=== PATIENT | male | born 1950 | race Hispanic/Latino ===

== ENCOUNTER 2024-01-03 22:11 | Inpatient (IN) | payer MEDICARE, OTHER, SELFPAY ==
[2024-01-03] VITALS (14 sets, daily range): BP systolic 140–187; BP diastolic 83–124; BMI 25.6; BMI 30.5
--- NOTE | 2024-01-03 17:06 | ED.PDOC.TRB ---
ED Provider Triage
-
Patient seen by provider in Triage?: Seen in Triage
Attestation: A medical screening examination has been initiated by a qualified medical provider. Based on the assessment performed at this time, it has been determined that an emergent medical condition may exist and the patient has been informed
that further medical evaluation and possible additional diagnostic testing may be needed.
HPI: 73yoM here with chest tightness throughout the day. BP high at home. Feels like something is wrong.
GENERAL: Alert , in no apparent distress
EYE: No visual abnormalities.
NECK: Trachea midline
ENT: No visible abnormalities.
LUNGS: No acute respiratory distress
NEUROLOGICAL: Alert and oriented
SKIN: Skin intact. No visible changes.
MUSCULOSKELETAL: Moving extremities normally
PSYCH: Normal and appropriate interaction.
This is a medical evaluation conducted in person to initiate diagnostic evaluation and provide initial therapeutics. Please see further documentation by the treating clinician.
Cardiac labs, EKG, and CXR ordered.
[2024-01-03 17:39] LABS: % Basophils 0.3 % (0-2); % Eosinophils 1.7 % (0-6); % Immature Granulocytes 0.2 % (0-0.5); % Lymphocytes 25.3 % (20.5-51.1); % Monocytes 5.3 % (1.7-9.3); % Neutrophils 67.2 % (42.2-75.2); Absolute Eosinophils 0.1 10^3/uL (0-0.7); Absolute Lymphocytes 1.7 10^3/uL (1.2-3.4); Absolute Monocytes 0.4 10^3/uL (0.1-0.6); Absolute Neutrophils 4.4 10^3/uL (1.4-6.5); Hematocrit 44.1 % (39.0-52.0); Hemoglobin 14.6 g/dL (13.0-18.0); Mean Corp Hgb Conc. 33.1 g/dL (33.0-37.0); Mean Corpuscular Hgb 29.4 pg (27.0-31.0); Mean Corpuscular Volume 88.9 fL (80.0-94.0); Mean Platelet Volume 11.5 fL (7.4-10.4); Nucleated Red Blood Cells % 0 % (-); Platelet Count 212 10^3/uL (130-400); Red Blood Cell Count 4.96 10^6/uL (4.70-6.10); Red Cell Dist. Width 12.7 % (11.5-14.5); White Blood Cell Count 6.6 10^3/uL (4.8-10.8)
[2024-01-03 17:54] LABS: ALT (SGPT) 30 U/L (0-50); AST (SGOT) 32 U/L (17-59); Albumin 4.2 g/dl (3.5-5.0); Alkaline Phosphatase 88 U/L (38-126); Blood Urea Nitrogen 16 mg/dl (9-20); Calcium 9.3 mg/dl (8.4-10.2); Carbon Dioxide 30 mmol/L (22-30); Chloride 99 mmol/L (98-107); Glucose 111 mg/dl (70-99); Potassium 4.1 mmol/L (3.5-5.1); Sodium 140 mmol/L (135-145); Total Bilirubin 0.9 mg/dl (0.2-1.3); eGFR > 60.00
[2024-01-03 18:04] LABS: Troponin I < 0.012 ng/ml
--- NOTE | 2024-01-03 20:47 | HPS.HSE ---
Family Physician
-
Family Physician: NOT KNOW UNKNOWN - PT DOES
Chief Complaint
-
Chest sensation with heart skipping a beat, hypertension at home
History of Present Illness
73-year-old male who reports this morning he did not feel right. He felt his heart skipping beats along with a sensation of lightheadedness and some tingling down his left arm. Along with a current headache. He reports he has had episodes of this
over the past 9 to 10 months but very infrequent and they did not persist. He also reports his blood pressure was elevated at home 180/103 at approximately 1 PM this afternoon. He denies fever, chills, sore throat, shortness of breath, cough,
abdominal pain, nausea, vomiting, diarrhea, urinary symptoms, new medications. In the ER he was noted to have an idioventricular rhythm on the monitor with symptoms of his heart skipping a beat he states. The case was discussed with Dr. Mitchell from
cardiology by ER physician who recommended switching carvedilol ER 80 mg daily to metoprolol tartrate 50 mg every 6 hours with repeat echo in a.m. he is from [place] and follows with [facility] cardiology. He had a stress test approximately 1 month
ago does not have current results but was not notified it was abnormal. He has past medical history of hypertension, hyperlipidemia, BPH
Medical History
Past Medical History
Past Medical History: Reports Other
Additional Past Medical History:
hypertension
hyperlipidemia
BPH
Past Surgical History: Reports Other
Additional Past Surgical History:
Lasix eye surgery
Social History
Tobacco: Non-smoker
Alcohol: None
Drug: None
Personal:
Living: With Family ( Chinyere)
Employment: Retired
Family History
Family History: Other (Reports mother at 93 father 85 he is unsure of any medical problems or how they )
Allergies / Home Medications
Allergies reflects when Allergies were last updated in [facility].
Home Medications with original date entered in [facility]
Allergy/Medication List:
Allergies
Allergy/AdvReac Type Severity Reaction Status Date / Time
Penicillins Allergy Hives Verified 01/03/24 17:00
Home Medications
aspirin 81 mg chewable tablet 81 mg PO BID 01/03/24
carvedilol phosphate 80 mg capsule,ext.[id number] multiphase 80 mg PO DAILY 01/03/24
cyanocobalamin (vitamin B-12) 1,000 mcg tablet 1,000 mcg PO DAILY 01/03/24
dutasteride 0.5 mg capsule 0.5 mg PO DAILY 01/03/24
fexofenadine-pseudoephedrine ER 180 mg-240 mg tablet,ext.release 24 hr (Michelle-D 24 Hour) 1 tab PO DAILYPRN PRN allergies 01/03/24
fluticasone propionate 50 mcg/actuation nasal spray,suspension 1 spray intranasal DAILYPRN PRN conjestion 01/03/24
hydrochlorothiazide 25 mg tablet 25 mg PO DAILY 01/03/24
lisinopril 20 mg tablet 20 mg PO BID 01/03/24
nitroglycerin 0.3 mg sublingual tablet 0.3 mg sublingual [id number] PRN chest pain 01/03/24
rosuvastatin 40 mg tablet 40 mg PO DAILY 01/03/24
tamsulosin 0.4 mg capsule 0.4 mg PO DAILY 01/03/24
therapeutic multivitamin 1 tab PO DAILY 01/03/24
Review of Systems
-
History Source: Patient and Family ( at bedside)
A 12 point ROS was completed and negative except as noted: Yes
Constitutional: Denies Fever, Fatigue or Chills
EENT: Denies Sore Throat or Runny Nose
Respiratory: Denies Cough or Trouble Breathing
Cardiac: Reports Palpitations; Denies Chest Pain, Diaphoresis or Syncope
Abdomen/GI: Denies Abdominal Pain, Nausea, Vomiting, Diarrhea, Constipated or Bloody Stools
: Denies Dysuria, Frequency, Flank Pain, Incontinence, Difficulty Voiding, Urgency or Bleeding
Musculoskeletal: Denies Joint Pain or Edema
Skin: Denies Itching or Rash
Neurological: Reports Dizzy, Headache and Other (Tingling down left arm earlier today); Denies Weakness or Numbness
Endocrine: Reports No Symptoms
Hematologic/Lymphatic: Reports No Symptoms
Psych: Reports Calm
Physical Exam
Vital Signs
Vital Signs
Temp Pulse Resp BP Pulse Ox
98.1 F 64 22 166/109 98
01/03/24 16:57 01/03/24 20:31 01/03/24 20:31 01/03/24 20:31 01/03/24 16:57
Physical Exam
General: Comfortable and Conversant; No Fever or Chills
HEENT: NormoCephalic, Anicteric, Moist mucous membranes, PERRLA, [place] Conjunctivae and No Ptosis
Respiratory: Clear; No Wheezes, Rales or Rhonchi
Cardiac: S1/S2 and Bradycardia (Sinus); No Murmur, Rub, Gallop, Peripheral Edema or JVD
Breast: Deferred by me
GI: Soft, Non Tender, Non Distended, Normal Bowel Sounds and No Hepatosplenomegaly
Rectal: Deferred by Provider
Genito-urinary: Deferred by me
Musculoskeletal: No Clubbing, No Cyanosis and No Edema
Skin: Warm and Dry; No Rash or Jaundice
Neuro: AO x 3, No Motor Deficits, Nonfocal/grossly intact, Cranial Nerves Intact and No Sensory Deficits; No Slurred Speech, Facial Droop, Tremors or Sedated
Psych: Calm
Laboratory Results
-
01/03/24 17:15
01/03/24 17:15
Laboratory Results
Total Bilirubin 0.9 mg/dl (0.2-1.3) 01/03/24 17:15
AST 32 U/L (17-59) 01/03/24 17:15
ALT 30 U/L (0-50) 01/03/24 17:15
Alkaline Phosphatase 88 U/L (38-126) 01/03/24 17:15
Troponin I < 0.012 ng/ml 01/03/24 17:15
Data Reviewed
-
Diagnostic Radiology: Report Reviewed by me
Lab Data: Labs Reviewed by me
Impression/Plan
-
Impression/plan:
Admit to telemetry
#Palpitations with idioventricular rhythm on monitor
-Idioventricular rhythm was captured on ER monitor at bedside.
-Consult CBC cardiology�Dr. Imtchell aware
-Cardiology recommends switching carvedilol ER 80 mg daily> metoprolol to tartrate 50 mg every 6 hours
-Patient had stress test 1 month ago unsure of results by cardiology [facility]
-2D echo in a.m.
Troponin<0.012, will follow
-Check mag
-Continue aspirin 81 mg
CXR: No acute pulmonary process. Marked elevation left hemidiaphragm limiting evaluation of the cardiac silhouette
EKG: Sinus bradycardia 59 bpm, QTc 45 MS
#Uncontrolled HTN/HTN�benign
166/109
-IV hydralazine 10 mg now then 10 mg every 6 hours as needed SBP> 160 dobson>100
-Continue lisinopril 20 mg twice daily, HCTZ 25 mg daily with hold parameters
#HLD
-Check lipid profile
-Continue rosuvastatin 40 mg daily
#BPH
-Continue tamsulosin 0.4 mg at bedtime
-Continue dutasteride 0.5 mg daily
#Seasonal allergies
Takes Michelle-D 1 tab daily as needed last dose unknown
DVT prophylaxis
Subcu Lovenox
Full code per patient with Chinyere at bedside
--- NOTE | 2024-01-03 21:06 | W.PN.UPDATE ---
Update Note
Progress Note Update
Patient seen in conjunction with JULIANN. I agree with the get history and findings on physical exam. Concur with assessment and plan unless today otherwise.
This is a 73-year-old was past medical history significant for hypertension, hyperlipidemia, BPH presenting to the Emergency Department with episodes of recurrent palpitations.
Patient visiting from after his back. Patient reported that today he noted that his blood pressure was elevated at home. Aside from that he had dizziness. No lightheadedness. No nausea or vomiting. Denies any shortness of breath. There has
been no recent falls. Came to the ED to be evaluated for the chest symptoms.
Patient reports that he had prior episodes but not persistent. Reports a possible episode of loss of consciousness in March of last year which was presumed to be possible TIA. The patient had a recent stress test with results pending.
He denies any changes in medications. He has been chronically on carvedilol 80 mg for years.
While in the ED he was hypertensive to 170s over 110, initial pulse was 64 oxygen saturation was 90% on room air. ECG showed sinus bradycardia with rate of 59 GA was 154, no acute ST or T wave changes.
A rhythm strip showed episodes of accelerated idioventricular rhythm at a rate of 81. These episodes were associated with his palpitations symptomatically.
His troponin was 0.012. His CBC was currently normal. Electrolytes were normal with specifically normal potassium.
Assessment and plan
Palpitations -palpitations correlate with episodes of accelerated idioventricular rhythm. No apparent heart block. [place] sinus rate in the 50s to 60 while idioventricular rhythm runs in the 80s to 90s. No known history of ischemia. Troponin
negative here. Reports recent stress in [place] with results pending.
- admit to telemetry
- trend troponins
- d/c carvedilol 80mg per cardiology, placed on metoprolol q 6 for now
- check mag level
- had recent stress test to eval ischemia with results pending, continue aspirin statin
- check echo for CHF
- cardiology consulted
HTN - Uncontrolled HTN with headache
- prn hydralazine for now
- continue lisinopril and hctz
BPH
- continue dutasteride and tamsulosin
DVT PPX - lovenox
Code Status - Full Code
[2024-01-03 21:24] LABS: Troponin I < 0.012 ng/ml
[2024-01-03] MEDS: TYLENOL 650 MG PO (21:30)
[2024-01-03 21:42] LABS: Magnesium 1.8 mg/dl (1.6-2.3)
[2024-01-03] MEDS: APRESOLINE 5 MG IV (21:49)
[2024-01-03] MEDS: FLOMAX 0.4 MG PO (23:41)
[2024-01-04] VITALS (7 sets, daily range): BP systolic 132–160; BP diastolic 78–95; PULSE 67; O2SAT 98
--- NOTE | 2024-01-04 01:02 | PTCARENOTE ---
Received patient from ER. stable vitals. c/o Palpitations/SOB/ slight dizzy with venti rhythm ( on tele happened twice ). No other complaints otherwise. SR in 60s-70s on tele. POC reviewed with tele.
[2024-01-04 02:13] LABS: Troponin I < 0.012 ng/ml
--- NOTE | 2024-01-04 02:37 | ED.GENMED ---
History of Present Illness
General
Chief Complaint: Cardiac Symptoms
Source: patient and spouse
Exam Limitations: none
Time Seen by Provider: 01/03/24 20:02
Nursing documentation reviewed up to this point in time: agreed with
History of Present Illness
History of Present Illness:
73-year-old male with a past medical history of hypertension, hyperlipidemia who presents to the emergency room with his for evaluation of chest discomfort. Patient reports onset of symptoms earlier today and they have been intermittent. He
says that they usually last for anywhere from 10 seconds to about a minute. No clear triggering factors noted. He reports that he 'weird' feeling in the left side of his chest and some palpitations. He denies any shortness of breath. Denies
feeling dizzy or passing out. He denies any recent illness�no cough, fevers, chills. Has not had any GI issues. He denies any known cardiac history but says that he has seen a trampoline team coach recently�he says that he had a TIA last March and was
referred to cardiology for evaluation after this and he says he had a recent echocardiogram and stress test but has not heard anything about the results. Patient lives in [place] and is visiting family in the area right now, his primary
trampoline team coach is in [place]. He does note that because of his symptoms today he has been monitoring his blood pressure and it has been running higher than usual despite compliance with his medications.
Review of Systems
Review of Systems
All Other Systems: ROS reviewed and negative except as documented in HPI and ROS
Constitutional: Denies fever or chills
Respiratory: Denies cough or trouble breathing
Cardiac: Reports chest pain and palpitations; Denies diaphoresis or syncope
ABD/GI: Denies abdominal pain, nausea or vomiting
Musculoskeletal: Denies edema
Neurological: Denies dizzy or headache
Phy Exam
Physical Exam
Physical Exam:
General: Awake, alert, oriented x3; no acute distress
Head: Normocephalic, atraumatic
Eyes: Conjunctiva normal, EOMI
Throat: Airway intact, handling secretions
Neck: Trachea midline, supple without meningismus
Lungs: Clear to auscultation bilaterally, no wheezing, rales, rhonchi
Heart: Regular rate and rhythm, no murmurs, gallops, or rubs
Abd: Soft, non distended, nontender
Neuro: Cranial nerves grossly intact, speech fluid
Skin: no rash
Extremities: No edema in extremities, equal pulses in all extremities
Scores
Heart Failure Risk
Heart Failure Risk Score: Not Applicable
Heart Score for Chest Pain Patients
STEMI patient?: No
History: Slightly or Non-Suspicious
ECG: Normal
Age: >/= 65 years
Risk Factors: >/= 3 Risk Factors or History of CAD
Troponin: </= Normal Limit
Heart Score for Chest Pain Patients: 4
Heart Score Risk: 20.3% MACE over next 6 weeks
Withdrawal Assessment of Alcohol
Withdrawal Assessment Completed?: Not applicable
Course
Orders/Labs/Results
Orders:
Orders
01/03/24 Dinner
Cholesterol Lowering
At Your Request: Limited Participation
Does patient need a safe tray?: No
Cholesterol Lowering: Sodium, 2 Gram
Regular
01/03/24 17:00
Electrocardiogram (*1) Urgent
Reason for Study: Hypertension, Benign
01/03/24 17:01
EKG- Treatment ONCE
01/03/24 17:09
CR Chest - 2 Views Urgent
Comment:
Reason For Exam: Chest tightness
01/03/24 17:15
Complete Blood Count/With Diff Urgent
Comprehensive Metabolic Panel Urgent
Magnesium Urgent
Troponin I Urgent
01/03/24 19:32
ECG [Electrocardiogram (*1)] Urgent
Reason for Study: Palpitations
01/03/24 20:36
CARDIOLOGY CONSULT Urgent
Consulting Provider: Eleuterio Mitchell
Was physician already notified: Yes
01/03/24 20:47
Troponin I Urgent
01/03/24 21:05
Acetaminophen [Tylenol] 650 mg PO NOW STA
Acetaminophen [Tylenol] 650 mg PO Q6HPRN PRN
HydrALAZINE [Apresoline] 10 mg IV NOW STA
HydrALAZINE [Apresoline] 10 mg IV Q6HPRN PRN
01/03/24 21:11
Add On- LAB Stat
Tests Added?: magnesium level
01/03/24 21:16
Admit/Transfer Patient As Directed
Co-Sign Provider:
Level of Care: Inpatient admission
Assign to:: Telemetry
Physician / Group: kenia nava
Diagnosis: palpitation w/ idoventric rhythm, uncontroll htn
Reason for Telemetry: Arrhythmia
Date to Stop Telemetry: 01/06/24
Time to Stop Telemetry: 11:00
Reason for Hospitalization: palpitation w/ idoventric rhythm, uncontroll htn
Expected length of stay greater than two midnights?: Yes
ELOS- Estimated Length of Stay in days: 3
I certify the patient meets the requirements for IP care: Yes
Code Status As Directed
Resuscitation Status: Full Code
01/03/24 21:19
PRN Pain Medication Management As Directed
May give lesser potent ordered pain med per pt: Yes
preference::
Protocol:: Medication orders for pain may be administered in a
manner that supports deferring to patient preference
when the pt is:
- Requesting an ordered lesser potent pain medication.
Least to most potent pain medications are defined
as: acetaminophen < NSAID < tramadol < opioids
(morphine, oxycodone, hydromorphone).
- Requesting a lesser dose of the same medication IF
ORDERED.
- Requesting a less intrusive route of administration
if both routes are prescribed by the provider (PO <
IV).
01/03/24 21:39
HydrALAZINE [Apresoline] 5 mg IV NOW STA
HydrALAZINE [Apresoline] 5 mg IV Q6HPRN PRN
01/03/24 22:00
Flush (0.9% Sodium Chloride) [Flush (Nss)] See Dose Instructions IV PER PROTOCOL
01/03/24 22:42
Tamsulosin [Flomax] 0.4 mg PO HS
01/03/24 22:42
Activity As Directed
Activity Level: As Tolerated
Intake/ Output As Directed
Frequency: Per unit guidelines
Vital Signs As Directed
Frequency: Per unit guidelines
Pt Eval And Treat Routine
Activity Level: As Tolerated
DX Deep Vein Thrombosis Video Routine
01/04/24 01:33
Troponin I Urgent
01/04/24 06:00
Echo 2D MMode Color/Doppler IN AM
Reason for Study: idoventricular rhythm/cp
Basic Metabolic Panel IN AM
Cardiovascular Evaluation IN AM
Complete Blood Count/With Diff IN AM
Metoprolol [Lopressor] 50 mg PO Q6
01/04/24 08:00
Aspirin Chewable [Low Strength Aspirin] 81 mg PO DAILY
Cyanocobalamin [Vitamin B-12] 1,000 mcg PO DAILY
Finasteride [Proscar] 5 mg PO DAILY
Hydrochlorothiazide [Oretic] 25 mg PO DAILY
Lisinopril [Zestril] 20 mg PO BID
Multivitamin [Theragran] 1 tablet PO DAILY
Rosuvastatin Calcium [Crestor] 40 mg PO DAILY
01/04/24 18:00
Enoxaparin Sodium [Lovenox] 40 mg SC QPM
01/06/24 11:00
DC Protocol for Telemetry ONCE
Abnormal Lab Results
01/03/24
17:15
MPV 11.5 H fL
(7.4-10.4)
Glucose 111 H mg/dl
(70-99)
01/03/24 17:15
01/03/24 17:15
Vital Signs
Initial and Last Documented VS:
Initial Vital Signs
Temp Pulse Resp BP Pulse Ox
36.7 C 66 16 187/107 98
01/03/24 16:57 01/03/24 16:57 01/03/24 16:57 01/03/24 16:57 01/03/24 16:57
Last Documented Vital Signs
Temp Pulse Resp BP Pulse Ox
37.0 C 68 22 150/88 98
01/03/24 22:54 01/03/24 22:54 01/03/24 22:54 01/03/24 22:54 01/03/24 22:54
MDM/Problems Addressed
Differential Diagnosis Includes:
Angina/ACS, arrhythmia, GERD, costochondritis; pneumothorax, pneumonia, PE all considered much less likely clinically
MDM/Problems Addressed:
73-year-old male presents for evaluation of intermittent episodes of chest discomfort throughout the day. Hypertensive otherwise normal vitals. EKG shows sinus rhythm with no STEMI. Will check labs including a CBC and a CMP, troponin, chest
x-ray. Monitor closely reassess after the above.
I was notified by the patient's nurse that he had an episode of chest discomfort as described above and on child monitor went into a wide-complex rhythm�strips were printed out and scanned into the medical record. Unfortunately unable to catch
a twelve-lead EKG at the time as episode ended rather quickly. Review of rhythm strip appears to show wide-complex tachycardia rate in the low 100s�could be accelerated junctional or idioventricular rhythm/slow V. tach. Will discuss with
cardiology.
Labs reviewed: CBC and CMP no clinically significant abnormalities. Troponin undetectable x 1 repeats pending. Chest x-ray no acute disease. Case discussed with cardiology�recommended changing patient from carvedilol extended release 80 mg daily
to metoprolol tartrate 50 mg every 6 hours for now, will admit to the hospital service and continue to monitor. Case discussed with hospitalist for admission.
Chronic conditions affecting care:
Hypertension, hyperlipidemia
Acute Exacerbation and/or Progression of Chronic Illness:
Acutely hypertensive
Acute Exacerbation and/or Progression of Chronic Illness: HTN
*Radiology
Radiology exam reviewed: preliminary read by ED provider and radiology read reviewed
*Pulse Oximetry
Patient hypoxic: no
*EKG
Interpreted by ED Provider?: Yes
Heart Rate: 63
Rate: normal
Rhythm: sinus
[place]: normal axis
Interval: normal interval
QRS Pattern: normal QRS
Ischemia: no ischemia
*Critical Care Note
Total Time (30-74mins, 75-104mins- exclusive of procedures): Not Applicable
Data Reviewed
Source: patient and spouse
Patient Management
Discussion with other providers: Hospitalist (Discussed with hospitalist) and [employer]ar[employer] (Discussed with cardiology)
Escalation/DeEscalation of care consider admission/obs:
Admission indicated
ED Attending Note
-
Portions of this chart may have been created with voice recognition software.� Occasional wrong word or��sound alike� substitutions may have occurred due to the inherent limitations of voice recognition software.
Discharge Plan
Departure
Patient Disposition: Admit
Date of Disposition: 01/03/24
Time of Disposition: 20:38
Admit to doctor: Joe
Presentation/result/management discussed w/ accepting MD/DO: Hospitalist
Discharge Problem:
Chest discomfort, Idioventricular rhythm
Interventions
Interventions:
*Risk Screen - Suicide Last Done: 01/03/24 16:57
*Neglect/Abuse Screening Last Done: 01/03/24 16:57
*Nursing Disposition Last Done: 01/03/24 23:01
ED- Cardiac Assessment Last Done: 01/03/24 19:42
ED- Neurological Assessment Last Done: 01/03/24 19:42
ED- Pulmonary Assessment Last Done: 01/03/24 19:42
Discharge Date and Time
Discharge Date/Time: 01/03/24 22:40
--- NOTE | 2024-01-04 07:52 | CON.CAR ---
Addendum entered and electronically signed by Irlanda Obrien MD 01/04/24 11:17:
I saw and examined the patient.
The PROCESS IMPROVEMENT MANAGER's note was reviewed and I agree with the note.
Comment: 73 yo M with pmh of (known to [facility] cardiology from [place]), with hypertension, dyslipidemia, and BPH who presented with sudden onset palpitations and LH that was severe, and made him worry he would pass out. He is having ongoing
intermittent symptoms. Otherwise, he is active without issue. On exam RRR no m/r/g, lungs CTA, no le edema. His ECG shows Sinus with inferior infarct. While I was examining him, he had symptoms. Telemetry showed accelerated idioventricular
rhythm. Overall, this seems to be the source of his symptoms. Will check an echocardiogram to on sure no underlying structural heart disease. I discussed with Dr. Garza who will review his telemetry strips. Unfortunately there is not a great
easy fix to this. We may need to trial multiple beta-blockers, but if echo is normal and he is otherwise stable this could be done as an outpatient. Currently we have transitioned his Coreg to metoprolol, would recommend transitioning to succinate
for discharge.His hypertension was elevated on admission but this is stabilized. We are transitioning Coreg to metoprolol succinate, this may have a less effective antihypertensive effect. However we will titrate medications as needed. He will
continue on his rosuvastatin at current dosing for his hyperlipidemia. Will follow. Recommendations discussed with Dr. Murguia after evaluation.
Original Note:
Consultation
Consultation Request
Date/Time Consultation Requested: 01/03/2024 20:30
Date/Time Consultation Performed: 01/04/2024 07:50
Requesting Provider: Dr. Pollack
Performing Provider: JULINAN Malik for Dr. Obrien
Reason for Consultation: Chest pain
Medical History
-
Chief Complaint: Chest tightness, heart skipping beats, elevated BP
History of Present Illness:
Dameon Tellez is a 73-year-old male (known to [facility] cardiology from [place]), with hypertension, dyslipidemia, and BPH who presented to the emergency department with a chief complaint of lightheadedness He also endorsed his heart skipping beats
at home. He checked his BP. His systolic blood pressure was also 170 mmHg. He took an extra Lisinopril and felt a little bit better. He went to his daughters house. His lightheadedness kept returning. He had continued palpitations. He felt a little
tightness in his chest prior to arrival to the ER. It did not radiate. No associated symptoms of nausea and diaphoresis. He had an exercise nuclear stress test one month ago that was converted to Lexiscan. He has an appointment at the end of next
month with his mine deputy to discuss the results. He also had an echocardiogram at that time. He also was not yet given the results.
Past Medical History
Past Medical History: HTN, Hypercholesterolemia and Other (BPH)
Social History
Tobacco: Non-Smoker
Alcohol: None
Drug: None
Personal:
Living: With Family
Employment: Retired ([employer])
Family History
Family History: Reviewed & Not Pertinent (Denies early CAD and SCD.)
Allergies / Home Medications
Allergy/AdvReac Type Severity Reaction Status Date / Time
Penicillins Allergy Hives Verified 01/03/24 17:00
�Medication �Instructions �Recorded �Confirmed �Type
aspirin 81 mg chewable tablet 81 mg PO DAILY 01/03/24 01/03/24 History
aspirin 81 mg tablet 81 mg PO HS 01/03/24 01/03/24 History
carvedilol phosphate 80 mg 80 mg PO DAILY 01/03/24 01/03/24 History
capsule,ext.[id number] multiphase
cyanocobalamin (vitamin B-12) 1,000 mcg PO DAILY 01/03/24 01/03/24 History
1,000 mcg tablet
dutasteride 0.5 mg capsule 0.5 mg PO DAILY 01/03/24 01/03/24 History
fexofenadine-pseudoephedrine ER 1 tab PO DAILYPRN PRN allergies 01/03/24 01/03/24 History
180 mg-240 mg tablet,ext.release
24 hr (Michelle-D 24 Hour)
fluticasone propionate 50 1 spray intranasal DAILYPRN PRN 01/03/24 01/03/24 History
mcg/actuation nasal conjestion
spray,suspension
hydrochlorothiazide 25 mg tablet 25 mg PO DAILY 01/03/24 01/03/24 History
lisinopril 20 mg tablet 20 mg PO BID 01/03/24 01/03/24 History
nitroglycerin 0.3 mg sublingual 0.3 mg sublingual [id number] PRN 01/03/24 01/03/24 History
tablet chest pain
rosuvastatin 40 mg tablet 40 mg PO DAILY 01/03/24 01/03/24 History
tamsulosin 0.4 mg capsule 0.4 mg PO HS 01/03/24 01/03/24 History
therapeutic multivitamin 1 tab PO DAILY 01/03/24 01/03/24 History
Review of Systems
-
History Source: Patient
All other systems: Negative unless noted
Constitutional: No Symptoms
EENT: No Symptoms
Respiratory: No Symptoms
Cardiac: No Symptoms
Abdomen/GI: No Symptoms
: No Symptoms
Musculoskeletal: No Symptoms
Skin: No Symptoms
Neurological: Other (Lightheadedness)
Endocrine: No Symptoms
Hematologic/Lymphatic: No Symptoms
Physical Exam
Vital Signs
Temp Pulse Resp BP Pulse Ox
97.5 F 56 16 147/89 98
01/04/24 03:57 01/04/24 03:57 01/04/24 03:57 01/04/24 03:57 01/04/24 03:57
Lab Results
Troponin I < 0.012 ng/ml 01/04/24 01:33
Physical Exam
General: Well Developed, Well Nourished, No Apparent Distress and Comfortable
HEENT: Normocephalic, Anicteric and Moist Mucous Membranes
Respiratory: Clear and Non Labored Respirations
Cardiac: S1/S2 and Regular Rhythm; Negative Peripheral Edema
Breast: Deferred by me
GI: Soft, Non Tender, Non Distended and Normal Bowel Sounds
Rectal: Deferred by Provider
Genito-urinary: No Costovertebral Tender
Musculoskeletal: No Clubbing, No Cyanosis and No Edema
Skin: Warm and Dry
Neuro: AO x 3
Hematologic/Lymphatic: No Lymphadenopathy
Psych: Calm
Impression / Plan
-
Lightheadedness, in the setting of accelerated idioventricular rhythm
-Correlates with telemetry
-Coreg CR stopped and metoprolol tartrate started
-Follow telemetry
Chest tightness
-He had a Lexiscan nuclear stress test last month, requested
-Troponin < 0.012 x 3
-EKG without acute ischemia
Hypertensive urgency
-BP improved
-Received one dose of Hydralazine last night in the ER
Palpitations
-PACs on telemetry, would not advance beta janelle given idioventricular rhythm
Dyslipidemia, on rosuvastatin 40 mg, fasting lipid panel pending
Data Reviewed
-
EKG: Report Reviewed by me
Labs: Labs Reviewed by me
Old Records: Requested
[2024-01-04 08:14] LABS: % Basophils 0.2 % (0-2); % Eosinophils 3.2 % (0-6); % Immature Granulocytes 0.3 % (0-0.5); % Lymphocytes 27.2 % (20.5-51.1); % Monocytes 7.3 % (1.7-9.3); % Neutrophils 61.8 % (42.2-75.2); Absolute Eosinophils 0.2 10^3/uL (0-0.7); Absolute Lymphocytes 1.6 10^3/uL (1.2-3.4); Absolute Monocytes 0.4 10^3/uL (0.1-0.6); Absolute Neutrophils 3.7 10^3/uL (1.4-6.5); Hematocrit 41.7 % (39.0-52.0); Mean Corp Hgb Conc. 33.6 g/dL (33.0-37.0); Mean Corpuscular Hgb 29.3 pg (27.0-31.0); Mean Corpuscular Volume 87.2 fL (80.0-94.0); Mean Platelet Volume 11.7 fL (7.4-10.4); Nucleated Red Blood Cells % 0 % (-); Platelet Count 210 10^3/uL (130-400); Red Blood Cell Count 4.78 10^6/uL (4.70-6.10); Red Cell Dist. Width 12.9 % (11.5-14.5)
[2024-01-04 08:47] LABS: Blood Urea Nitrogen 17 mg/dl (9-20); Calcium 9.3 mg/dl (8.4-10.2); Carbon Dioxide 30 mmol/L (22-30); Chloride 101 mmol/L (98-107); Estimated Creatinine Clearance 94 ml/min; Glucose 120 mg/dl (70-99); HDL Cholesterol 63 mg/dl; LDL Cholesterol, Calculated 81 mg/dl; Potassium 3.8 mmol/L (3.5-5.1); Sodium 141 mmol/L (135-145); Total Cholesterol 159 mg/dl (50-199); Triglyceride 79 mg/dl (10-149); Very Low Density Lipoprotein 15 mg/dl (0-30); eGFR > 60.00
[2024-01-04] MEDS: ZESTRIL 20 MG PO ×2 (09:21→19:41)
[2024-01-04] MEDS: LOW STRENGTH ASPIRIN 81 MG PO (09:21)
[2024-01-04] MEDS: THERAGRAN 1 TABLET PO (09:21)
[2024-01-04] MEDS: CRESTOR 40 MG PO (09:21)
[2024-01-04] MEDS: ORETIC 25 MG PO (09:21)
[2024-01-04] MEDS: VITAMIN B-12 1000 MCG PO (09:21)
[2024-01-04] MEDS: PROSCAR 5 MG PO (09:21)
[2024-01-04 09:59] LABS: Glycohemoglobin (HgbA1c) 6.1 % (4.0-5.6)
--- NOTE | 2024-01-04 10:34 | W.PN.HOSP.TC ---
Today's Communication/Plan
-
see bold
Assessment / Plan
Assessment / Plan
Gen: NAD, AAOx3.
Eyes: EOMI, PERRLA, no scleral icterus.
Neck: supple.
CV: RRR, +S1/S2, no m/r/g.
Resp: CTAB, no rales, wheezes, or rhonchi.
Abd: +BS, soft, NT, ND
Skin: No rashes.
Neuro: CN 2-12 intact, non-focal.
Psych: Normal mood and affect.
Palpitations and lightheadedness:
-palpitations correlate with episodes of accelerated idioventricular rhythm. No apparent heart block. [place] sinus rate in the 50s to 60 while idioventricular rhythm runs in the 80s to 90s. No known history of ischemia. -Reports recent stress in
[place] with results pending
-case discussed with cardiology
-Coreg stopped, started Lopressor
-EP to eval
-trops NEG
-Mg 1.8, will give 1g IV Mg
-check echo
Other problemsL
Essential HTN: cont BB/ACEi/HCTZ
BPH: cont dutasteride/tamsulosin
Obesity due to excess calories: Encourage weight loss, affects all aspects of care
Pt's family updated extensively at bedside.
FULL/Lovenox
Total time spent on today's encounter was 50 minutes which included time spent in counseling the patient/family regarding diagnosis and treatment plan as listed above, goals of care, and symptom management. Case was discussed with nursing staff,
specialists, and care coordinators/case management. All labs and imaging personally reviewed by me. Remainder the time spent in detailed review of previous records, lab data, imaging, and other medical provider documentation.
Anticipated Discharge: Within 24 hours
Subjective/Interval History
-
Date of Service: January 04, 2024
Currently denies CP/SOB. Had palpitations earlier.
Objective Data
-
Labs:
Laboratory Results
01/04/24
07:43
WBC 6.0
Hgb 14.0
Hct 41.7
Plt Count 210
Sodium 141
Potassium 3.8
Chloride 101
Carbon Dioxide 30
BUN 17
Creatinine 0.8
Glucose 120 H
Calcium 9.3
Vital Signs:
Vital Signs
Temp Pulse Resp BP Pulse Ox
98 F 64 20 143/81 97
01/04/24 08:00 01/04/24 09:21 01/04/24 08:00 01/04/24 09:21 01/04/24 08:00
I&O
01/03/24 01/04/24 01/05/24
06:59 06:59 06:59
Intake Total 480 / 480
Balance 480 / 480
[2024-01-04] MEDS: MAGNESIUM SULFATE 100 IV (12:29)
[2024-01-04] MEDS: LOPRESSOR 50 MG PO ×2 (12:31→18:18)
--- NOTE | 2024-01-04 13:29 | CON.EPS ---
Consultation
-
Date/Time Consultation Requested: 01/04/24
Date/Time Consultation Performed: 01/04/24
Reason for Consultation: highly sympotmatic AIVR
Medical History
-
Chief Complaint: Palpitations and pre-syncope
History of Present Illness:
73-year-old gentleman with a history of hypertension, hyperlipidemia who was previously followed at [facility] at [place] and has recently moved to [place] and is here seeking further care. Patient was admitted with presyncope and palpitations.
Patient reported having palpitations. He has resistant hypertension and was previously being treated with carvedilol 80 mg once a day, hydrochlorothiazide 25, lisinopril 20 mg twice a day. With his recurrent palpitations arrhythmias, he was
admitted and has Coreg was switched to metoprolol 50 mg every 6h. He continued to have episodes of palpitations while in the hospital.
Telemetry was checked and was noted to have frequent episodes of PVCs and AIVR. Patient's symptom of presyncope and dizziness along with palpitations were reproducible with the onset of AIVR. Patient feels dizzy and about to fall down in the
presence Dr. Obrien with the onset of AIVR.
Past Medical History
Past Medical History: Arrhythmias (Frequent PVCs), HTN and Hypercholesterolemia
Past Electrophysiology History: PVC
Past EP Interventions: None
Social History
Tobacco: Non-Smoker
Alcohol: None
Drug: None
Personal:
Living: With Family
Family History
Family History: Reviewed & Not Pertinent
Allergies / Home Medications
Allergy/AdvReac Type Severity Reaction Status Date / Time
Penicillins Allergy Hives Verified 01/03/24 17:00
�Medication �Instructions �Recorded �Confirmed �Type
aspirin 81 mg chewable tablet 81 mg PO DAILY Blood Clot 01/03/24 01/03/24 History
Prevention/Tx
aspirin 81 mg tablet 81 mg PO HS Blood Clot 01/03/24 01/03/24 History
Prevention/Tx
carvedilol phosphate 80 mg 80 mg PO DAILY Blood Pressure 01/03/24 01/03/24 History
capsule,ext.[id number] multiphase
cyanocobalamin (vitamin B-12) 1,000 mcg PO DAILY Supplement 01/03/24 01/03/24 History
1,000 mcg tablet
dutasteride 0.5 mg capsule 0.5 mg PO DAILY Urinary Issue 01/03/24 01/03/24 History
fexofenadine-pseudoephedrine ER 1 tab PO DAILYPRN PRN allergies 01/03/24 01/03/24 History
180 mg-240 mg tablet,ext.release
24 hr (Michelle-D 24 Hour)
fluticasone propionate 50 1 spray intranasal DAILYPRN PRN 01/03/24 01/03/24 History
mcg/actuation nasal conjestion
spray,suspension
hydrochlorothiazide 25 mg tablet 25 mg PO DAILY Fluid 01/03/24 01/03/24 History
Retention/Swelling
lisinopril 20 mg tablet 20 mg PO BID Blood Pressure 01/03/24 01/03/24 History
nitroglycerin 0.3 mg sublingual 0.3 mg sublingual [id number] PRN 01/03/24 01/03/24 History
tablet chest pain
rosuvastatin 40 mg tablet 40 mg PO DAILY High Cholesterol 01/03/24 01/03/24 History
tamsulosin 0.4 mg capsule 0.4 mg PO HS Urinary Issue 01/03/24 01/03/24 History
therapeutic multivitamin 1 tab PO DAILY Supplement 01/03/24 01/03/24 History
Review of Systems
-
All other systems: Negative unless noted
Physical Exam
Vital Signs
Temp Pulse Resp BP Pulse Ox
98.4 F 64 18 154/95 98
01/04/24 12:12 01/04/24 12:31 01/04/24 12:12 01/04/24 12:31 01/04/24 12:12
Diagnostic Results
01/04/24 07:43
01/04/24 07:43
Troponin I < 0.012 ng/ml 01/04/24 01:33
Date of Last Echo: 01/04/2024
LV Ejection Fraction: 60%, moderate to severe MR
Physical Exam
General: Well Developed and Well Nourished
HEENT: Normocephalic, Anicteric and Moist Mucous Membranes
Respiratory: Clear and Non Labored Respirations
Cardiac: S1/S2 and Regular Rhythm
GI: Soft, Non Tender and Normal Bowel Sounds
Musculoskeletal: No Clubbing, No Cyanosis and No Edema
Neuro: Awake, Alert, Oriented and AO x 3
Impression / Plan
-
AIVR/ventricular arrhythmia/PVCs
-Patient has normal sinus rhythm but has slightly faster AIVR
-AIVR is highly symptomatic and symptoms of presyncope and dizziness is reproducible with the onset of AIVR
-Multiple episodes of AIVR and PVCs noted on telemetry
-PVC has same morphology as AIVR.
-EKG done on 01/03/2024 at 10:06 PM is showing AIVR at 88 bpm likely coming from anterolateral pap muscle
-Would recommend following
-Ischemic workup including cardiac catheterization to rule out any significant coronary artery disease
-Cardiac MRI to rule out any significant ventricular fibrosis.
-We discussed in detail with the possibility of ablation of the AIVR/PVC focus. Patient will see outpatient for ablation consult.
-Slow AIVR does not recommend ICD implantation just yet. However, if patient is bradycardic and atrial pacing is needed to suppress the PVCs and needs high dose beta-blockers, device can be implanted. Given the ventricular arrhythmia, if device
is needed, he should get dual-chamber ICD.
-Discontinue hydrochlorothiazide, uptitrate to Toprol 100 mg twice a day
-If there is no evidence of ischemia, flecainide could also be tried.
Moderate to severe mitral regurgitation
-Patient has otherwise normal structural heart disease on the echo but is noted to have moderate to severe MR
-Patient's AIVR and PVCs are coming from PAP muscle
-Mitral regurgitation could be related to AIVR as well
-Ischemic workup and ablation of the ventricular focus
Data Reviewed
-
EKG: Tracing Personally Visualized and interpreted
Radiology: Report Reviewed by me
Medical Tests (Nuc Med, Echo etc): Report Reviewed by me
Labs: Labs Reviewed by me
Old Records: Reviewed
--- NOTE | 2024-01-04 16:12 | CM ---
CM met with Dameon at bedside to complete IA. Advance Directive provided.
Dameon lives with in [address] with 1st floor setup. 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 No DME or history of SNF/VN.
PCP: Pt does not know
Pharmacy: Patient does not know
Plan: Discharge to home with no anticipated needs.
[2024-01-04] MEDS: LOVENOX 40 MG SC (18:18)
[2024-01-04] MEDS: FLOMAX 0.4 MG PO (22:57)
--- NOTE | 2024-01-04 23:30 | PTCARENOTE ---
Patient's HR -49-51, JULIANN Ingram made aware. will hold midnight dose as per advise.
[2024-01-05] VITALS (12 sets, daily range): BP systolic 114–149; BP diastolic 67–92
[2024-01-05] MEDS: LOPRESSOR PO ×2 (00:52→05:40)
--- NOTE | 2024-01-05 08:20 | W.PN.HOSP.TC ---
Today's Communication/Plan
-
see bold
Assessment / Plan
Assessment / Plan
Gen: NAD, AAOx3.
Eyes: EOMI, PERRLA, no scleral icterus.
Neck: supple.
CV: remains RRR, +S1/S2, no m/r/g.
Resp: remains CTAB, no rales, wheezes, or rhonchi.
Abd: +BS, soft, NT, ND
Skin: No rashes.
Neuro: remains CN 2-12 intact, non-focal.
Psych: Normal mood and affect.
Echo: Normal biventricular size and systolic function without regional wall motion abnormality. Stage II diastolic dysfunction suggestive of abnormal relaxation and increased filling pressures. Moderate to severe mitral regurgitation, may be
underestimated due to acoustic shadowing. No prior study available for comparison.
Palpitations and lightheadedness:
-palpitations correlate with episodes of accelerated idioventricular rhythm. No apparent heart block. [place] sinus rate in the 50s to 60 while idioventricular rhythm runs in the 80s to 90s. No known history of ischemia.
-Reports recent stress in [place] with results pending
-case discussed with cardiology
-echo above
-Coreg stopped, Lopressor started
-cardiac cath today
-will need cardiac MRI prior to ablation
-trops NEG
Other problems:
Prediabetes: a1c 6.1%
Essential HTN: cont BB/ACEi/HCTZ
BPH: cont dutasteride/tamsulosin
Obesity due to excess calories: Encourage weight loss, affects all aspects of care
FULL/Lovenox
Anticipated Discharge: Within 24 hours
Subjective/Interval History
-
Date of Service: January 05, 2024
No new complaints.
Objective Data
-
Vital Signs:
Vital Signs
Temp Pulse Resp BP Pulse Ox
98.2 F 56 18 126/81 96
01/05/24 03:03 01/05/24 05:40 01/05/24 03:03 01/05/24 03:03 01/05/24 03:03
I&O
01/04/24 01/05/24 01/06/24
06:59 06:59 06:59
Intake Total 480 / 480 0 / 0
Balance 480 / 480 0 / 0
[2024-01-05] MEDS: LOW STRENGTH ASPIRIN 81 MG PO (08:40)
[2024-01-05] MEDS: VITAMIN B-12 1000 MCG PO (08:40)
[2024-01-05] MEDS: ORETIC 25 MG PO (08:40)
[2024-01-05] MEDS: ZESTRIL 20 MG PO ×2 (08:40→20:32)
[2024-01-05] MEDS: CRESTOR 40 MG PO (08:40)
[2024-01-05] MEDS: THERAGRAN 1 TABLET PO (08:40)
[2024-01-05] MEDS: PROSCAR 5 MG PO (08:40)
--- NOTE | 2024-01-05 08:50 | W.PN.CD ---
Today's Communication / Plan
-
-Cardiac catheterization today for ischemic workup
-Continue metoprolol and reassess the need for pacemaker.
-Given the AIVR is slow, there is no role for ICD at this time.
Impression / Plan
-
Lightheadedness, in the setting of accelerated idioventricular rhythm
-Correlates with telemetry
-Coreg CR stopped and metoprolol tartrate started
-Bradycardia with AIVR noted. Patient's metoprolol was held due to bradycardia.
-Patient may need pacemaker for bradycardia. AIVR may be due to significant baseline bradycardia. Last episode of AIVR was again last night. Metoprolol was held prior to that due to bradycardia
-AIVR is likely coming from anterolateral Papillary muscle.
-PVCs are of the same morphology as the AIVR. Needs high-dose metoprolol.
Moderate to severe mitral regurgitation
-The MR could be associated with AIVR especially PAP muscle involvement.
-It is unclear whether MR caused the AIVR or the other way around
-At this time patient needs good heart rate control to limit the MR and reduce AIVR
-Obtain cardiac catheterization to rule out any ischemic heart disease.
-Patient appears well optimized and no signs of pulmonary edema noted.
Chest tightness
-He had a Lexiscan nuclear stress test last month, requested
-Troponin < 0.012 x 3
-EKG without acute ischemia
Hypertensive urgency
-BP improved
-Received one dose of Hydralazine last night in the ER
Palpitations
-PACs and PVC on telemetry, would not advance beta janelle given idioventricular rhythm
Dyslipidemia, on rosuvastatin 40 mg, fasting lipid panel pending
Physical Exam
Vital Signs/Labs
Vital Signs
Temp Pulse Resp BP Pulse Ox
97.6 F 64 18 145/83 94
01/05/24 07:40 01/05/24 07:40 01/05/24 07:40 01/05/24 07:40 01/05/24 07:40
01/04/24 01/05/24 01/06/24
06:59 06:59 06:59
Actual Weight 96.36 kg
01/04/24 07:43
01/04/24 07:43
Magnesium 1.8 mg/dl (1.6-2.3) 01/03/24 17:15
Triglycerides 79 mg/dl (10-149) 01/04/24 07:43
LDL Cholesterol, Calc 81 mg/dl 01/04/24 07:43
VLDL Cholesterol, Calc 15 mg/dl (0-30) 01/04/24 07:43
HDL Cholesterol 63 mg/dl 01/04/24 07:43
LAB Results
01/03/24 01/03/24 01/04/24
17:15 20:47 01:33
Troponin I < 0.012 < 0.012 < 0.012
Physical Exam
Constitutional: No acute distress and Comfortable
EENT: Anicteric and Moist mucous membranes
Cardiovascular: Rhythm & rate is regular, Pedal edema is absent and JVD pressure is normal
Respiratory: Respiratory effort normal, Lungs clear to auscul. and Wheeze Absent
GI: Soft, Non tender and Normal bowel sounds
Neuro/Psych: Alert, Oriented and AO x 3
Data Reviewed
-
Date of Service: January 05, 2024
Medical Decision Making: Reviewed Test Results, Independent Historian Assessment and Test Interpretation
EKG: Tracing Personally Visualized and interpreted
Echo: Report Reviewed by me
Labs: Labs Reviewed by me
Old Records: Reviewed
--- NOTE | 2024-01-05 11:40 | ITS.CL.CATH ---
Unemployment Insurance Director - Catheterization
Cardiac Catheterization
Procedure Report:
CARDIAC CATHETERIZATION REPORT
Date of Procedure: 01/05/2024
Referring: Angela Carson M.D.
INDICATION: AIVR.
PROCEDURE:
1. Left heart catheterization.
2. Left ventriculography.
3. Coronary angiography.
ACCESS:
6 [place] right radial artery.
CATHETERS:
1. 5 [place] angled pigtail.
2. 5 [place] JL 3.5.
3. 5 [place] JR4.
HEMODYNAMIC DATA
Weight (kg): 96.2
AO (s/d/x, mmHg): 129/71/89
LV (s/x mmHg): 129/12
LEFT VENTRICULOGRAPHY: Performed in an [place] projection. Frequent ectopy limits comprehensive evaluation. Normal size ventricle with preserved systolic function and no regional wall motion abnormalities. Left ventricular ejection fraction
estimated at 70%. There is severe mitral valve regurgitation. There is no aortic valve insufficiency. The aortic root and visualized ascending and descending aorta appear normal.
CORONARY ANGIOGRAPHY
Dominance: Right.
Left Main: Large size, bifurcating vessel. There is no coronary artery disease.
LAD: Large size vessel giving rise to 2 significant diagonals before wrapping around the apex and supplying the distal interventricular septum. There are minor luminal irregularities.
Ramus: Congenitally absent.
Circumflex: Large size, nondominant vessel with an acute, >90 degree turn immediately after originating from the left main coronary artery, giving rise to 2 obtuse marginals. OM1 is a medium size vessel with a superior origin. OM 2 is a large
vessel supplying the majority of the lateral and inferolateral wall. The circumflex terminates as a small left posterolateral branch. There is no significant coronary artery disease.
RCA: Large size, dominant vessel. The ostium of the right coronary artery is a large, funnel like origin requiring a multipurpose catheter to engage. There is a 20% lesion in the proximal vessel.
INTERVENTION(S)
None
Closure Device: Vascular band.
Radiation (mGy): 610.13
DAP (cm2.Gy): 51.9498
Fluoroscopy time (minutes): 6.9
Sedation time (minutes): 21
CONCLUSIONS
1. 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
2. Normal filling pressures (LVEDP = 12 mmHg at 96.2 kg).
3. Normal left ventricular systolic function with suboptimal left ventriculography. Left ventricular ejection fraction estimated at 70%.
4. There is severe mitral valve regurgitation on left ventriculography, though it is not clear how much of this is due to ectopy versus primary disease.
5. No obvious nidus for AIVR/slow VT.
RECOMMENDATIONS:
1. Expectant management after cardiac catheterization via right radial approach.
2. Limited weight bearing on the right wrist for one week.
3. Continued evaluation with electrophysiology for possible ICD, VT ablation.
Copy to: Angela Carson M.D.
Lewis Crowder DO, FACC, FACP
--- NOTE | 2024-01-05 11:48 | PTCARENOTE ---
Received patient from laboratory asst in bed. AAOx3. Right radial band, CDI. Family at bedside. No pain at present time.
[2024-01-05] MEDS: LOPRESSOR 50 MG PO ×3 (12:00→23:59)
[2024-01-05] MEDS: LOVENOX 40 MG SC (18:00)
[2024-01-05] MEDS: FLOMAX 0.4 MG PO (20:32)
[2024-01-06 03:17] VITALS: BP 146/90
[2024-01-06] MEDS: LOPRESSOR 50 MG PO (06:04)
[2024-01-06 07:14] VITALS: BP 143/93
[2024-01-06 08:37] LABS: Hematocrit 44.7 % (39.0-52.0); Hemoglobin 14.6 g/dL (13.0-18.0); Mean Corp Hgb Conc. 32.7 g/dL (33.0-37.0); Mean Corpuscular Hgb 29.2 pg (27.0-31.0); Mean Corpuscular Volume 89.4 fL (80.0-94.0); Mean Platelet Volume 11.7 fL (7.4-10.4); Platelet Count 207 10^3/uL (130-400); White Blood Cell Count 6.4 10^3/uL (4.8-10.8)
[2024-01-06] MEDS: THERAGRAN 1 TABLET PO (09:06)
[2024-01-06] MEDS: LOW STRENGTH ASPIRIN 81 MG PO (09:06)
[2024-01-06] MEDS: ORETIC 25 MG PO (09:06)
[2024-01-06] MEDS: ZESTRIL 20 MG PO ×2 (09:06→20:32)
[2024-01-06] MEDS: PROSCAR 5 MG PO (09:06)
[2024-01-06] MEDS: VITAMIN B-12 1000 MCG PO (09:06)
[2024-01-06] MEDS: CRESTOR 40 MG PO (09:06)
[2024-01-06 09:25] LABS: Blood Urea Nitrogen 17 mg/dl (9-20); Calcium 9.4 mg/dl (8.4-10.2); Carbon Dioxide 34 mmol/L (22-30); Chloride 97 mmol/L (98-107); Estimated Creatinine Clearance 84 ml/min; Glucose 98 mg/dl (70-99); Potassium 3.8 mmol/L (3.5-5.1); Sodium 140 mmol/L (135-145); eGFR > 60.00
--- NOTE | 2024-01-06 10:12 | W.PN.HOSP.TC ---
Today's Communication/Plan
-
see bold
Assessment / Plan
Assessment / Plan
Gen: NAD, AAOx3.
Eyes: EOMI, PERRLA, no scleral icterus.
Neck: supple.
CV: continues to remain RRR, +S1/S2, no m/r/g.
Resp: continues to remain CTAB, no rales, wheezes, or rhonchi.
Abd: +BS, soft, NT, ND
Skin: No rashes.
Neuro: continues to remain CN 2-12 intact, non-focal.
Psych: Normal mood and affect.
Echo: Normal biventricular size and systolic function without regional wall motion abnormality. Stage II diastolic dysfunction suggestive of abnormal relaxation and increased filling pressures. Moderate to severe mitral regurgitation, may be
underestimated due to acoustic shadowing. No prior study available for comparison.
Cardiac cath 01/05/24:
1. 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
2. Normal filling pressures (LVEDP = 12 mmHg at 96.2 kg).
3. Normal left ventricular systolic function with suboptimal left ventriculography. Left ventricular ejection fraction estimated at 70%.
4. There is severe mitral valve regurgitation on left ventriculography, though it is not clear how much of this is due to ectopy versus primary disease.
5. No obvious nidus for AIVR/slow VT.
Palpitations and lightheadedness:
-palpitations correlate with episodes of accelerated idioventricular rhythm. No apparent heart block. [place] sinus rate in the 50s to 60 while idioventricular rhythm runs in the 80s to 90s. No known history of ischemia.
-Reports recent stress in [place] with results pending
-case discussed with cardiology
-echo above
-Coreg stopped, Lopressor started
-cardiac cath above, no obstructive CAD, severe MR
-will need cardiac MRI prior to ablation. To be clear, no plans on canceling order for cardiac MRI despite one machine being down. This study needs to be done.
-trops NEG
Other problems:
Prediabetes: a1c 6.1%
Essential HTN: cont BB/ACEi/HCTZ
BPH: cont dutasteride/tamsulosin
Obesity due to excess calories: Encourage weight loss, affects all aspects of care
FULL/Lovenox
Anticipated Discharge: Within 24 hours
Subjective/Interval History
-
Date of Service: January 06, 2024
No new complaints.
Objective Data
-
Labs:
Laboratory Results
01/06/24
07:29
WBC 6.4
Hgb 14.6
Hct 44.7
Plt Count 207
Sodium 140
Potassium 3.8
Chloride 97 L
Carbon Dioxide 34 H
BUN 17
Creatinine 0.9
Glucose 98
Calcium 9.4
Vital Signs:
Vital Signs
Temp Pulse Resp BP Pulse Ox
97.5 F 61 20 143/93 99
01/06/24 07:14 01/06/24 07:14 01/06/24 07:14 01/06/24 07:14 01/06/24 07:14
I&O
01/05/24 01/06/24 01/07/24
06:59 06:59 06:59
Intake Total 0 / 0 1200 / 1200
Balance 0 / 0 1200 / 1200
--- NOTE | 2024-01-06 10:44 | W.PN.CD ---
Today's Communication / Plan
-
-[facility] at discharge for 2-4 weeks and follow up in office in 1 weeks.
-Plan for VT ablation and EP study in 1-2 weeks.
Impression / Plan
-
Accelerated idioventricular rhythm
-Symptomatic with pre-syncope
-Correlates with telemetry
-Coreg CR stopped and metoprolol tartrate started
-Bradycardia with AIVR noted. Patient's metoprolol was held due to bradycardia.
-Patient may need pacemaker for bradycardia. AIVR may be due to significant baseline bradycardia. Last episode of AIVR was again last night. Metoprolol was held prior to that due to bradycardia
-AIVR is likely coming from anterolateral Papillary muscle.
-PVCs are of the same morphology as the AIVR. Needs high-dose metoprolol.
-[facility] 01/05/24: No significant CAD. Severe Mitral regurgitation
-Switch Metoprolol to Toprol.
-[facility] at discharge and follow up in office in 1-2weeks.
-Plan for VT ablation and EP study. if fast VT noted or inducible arrhythmia, can proceed with ICD. Otherwise assess need fro PPM.
Moderate to severe mitral regurgitation
-The MR could be associated with AIVR especially PAP muscle involvement.
-It is unclear whether MR caused the AIVR or the other way around
-At this time patient needs good heart rate control to limit the MR and reduce AIVR
-s/p cardiac catheterization 01/05/24- rule out any ischemic heart disease.
-Patient appears well optimized and no signs of pulmonary edema noted.
Chest tightness
-He had a Lexiscan nuclear stress test last month, requested
-Troponin < 0.012 x 3
-EKG without acute ischemia
-
Hypertensive urgency
-BP - now on Metoprolol, HCTZ and Lisinopril
-Received one dose of Hydralazine last night in the ER
Palpitations
-PACs and PVC on telemetry, would not advance beta janelle given idioventricular rhythm
Dyslipidemia, on rosuvastatin 40 mg, fasting lipid panel pending
Physical Exam
Vital Signs/Labs
Vital Signs
Temp Pulse Resp BP Pulse Ox
97.5 F 61 20 143/93 99
01/06/24 07:14 01/06/24 07:14 01/06/24 07:14 01/06/24 07:14 01/06/24 07:14
01/06/24 07:29
01/06/24 07:29
Magnesium 1.8 mg/dl (1.6-2.3) 01/03/24 17:15
Triglycerides 79 mg/dl (10-149) 01/04/24 07:43
LDL Cholesterol, Calc 81 mg/dl 01/04/24 07:43
VLDL Cholesterol, Calc 15 mg/dl (0-30) 01/04/24 07:43
HDL Cholesterol 63 mg/dl 01/04/24 07:43
LAB Results
01/03/24 01/03/24 01/04/24
17:15 20:47 01:33
Troponin I < 0.012 < 0.012 < 0.012
Physical Exam
Constitutional: No acute distress and Comfortable
EENT: Anicteric and Moist mucous membranes
Cardiovascular: Rhythm & rate is regular, Pedal edema is absent, JVD pressure is normal and Systolic murmur present
Respiratory: Respiratory effort normal, Lungs clear to auscul., Crackles Absent and Rhonchi Absent
GI: Soft, Non tender and Normal bowel sounds
Neuro/Psych: Alert, Oriented and AO x 3
Data Reviewed
-
Date of Service: January 06, 2024
Medical Decision Making: Reviewed Test Results and Independent Historian Assessment
EKG: Tracing Personally Visualized and interpreted
Echo: Report Reviewed by me
X-Ray/CT/US/MRI/NUC/PET: Image Personally Visualized and interpreted
Labs: Labs Reviewed by me
Old Records: Reviewed
--- NOTE | 2024-01-06 11:00 | PTCARENOTE ---
Patient noted having a blurry vision in right eye while ambulating in hallway with . Patient states 'it could be from my lasik surgery I had recently'. Dr Murguia made aware. No new orders given.
[2024-01-06 11:04] VITALS: BP 138/85
[2024-01-06] MEDS: TOPROL XL 50 MG PO ×2 (11:53→20:32)
--- NOTE | 2024-01-06 12:15 | PTOTSP ---
The patient is independent with ambulation and mobility and will have no PT needs upon discharge. Encouraged the patient to continue ambulating while here to increase activity level. PT will sign off at this time.
[2024-01-06 15:02] VITALS: BP 154/90
[2024-01-06] MEDS: LOVENOX 40 MG SC (17:38)
[2024-01-06 19:35] VITALS: BP 133/71
[2024-01-06] MEDS: FLOMAX 0.4 MG PO (20:32)
[2024-01-06 23:20] VITALS: BP 117/61
[2024-01-07 07:35] VITALS: BP 153/86
--- NOTE | 2024-01-07 08:29 | W.PN.CD ---
Today's Communication / Plan
-
-
-
MRI pending
OK for home
He will have a site monitor sent to him
F/u with us will be arranged
No driving until we are confident AIVR is well controlled
All of above and below reviewed with pt
More than 55 min spent with patient and chart review and preparing this document
-
-
Impression / Plan
-
Symptomatic AIVR
- Suppressed on current well tolerated metoprolol ER
- Ablation vs continued med rx
- If EPS pursued or if MRI abnormal then if one of those and significant VT induced at EPS then ICD can be considered
PVCs, same morphology as AIVR, Dr. Carson suspects from anterolateral papillary muscle
Asymptomatic sinus bradycardia
- No current indication for pacemaker
Mitral regurgitation with dense MAC
- Mod-severe by echo
- Severe at cardiac cath
- No clinical heart failure, LVEDP 12, LV normal size at echo
- MR will need to be followed
No significant CAD at cath, max lesion 20% pRCA
HTN
Dyslipidemia, on rosuvastatin 40 mg, LDL less than 100
Subjective:Doing well
Physical Exam
Vital Signs/Labs
Vital Signs
Temp Pulse Resp BP Pulse Ox
97.6 F 67 16 153/86 98
01/07/24 07:35 01/07/24 07:35 01/07/24 07:35 01/07/24 07:35 01/07/24 07:35
01/06/24 07:29
01/06/24 07:29
Magnesium 1.8 mg/dl (1.6-2.3) 01/03/24 17:15
Triglycerides 79 mg/dl (10-149) 01/04/24 07:43
LDL Cholesterol, Calc 81 mg/dl 01/04/24 07:43
VLDL Cholesterol, Calc 15 mg/dl (0-30) 01/04/24 07:43
HDL Cholesterol 63 mg/dl 01/04/24 07:43
Physical Exam
Constitutional: No acute distress
EENT: Anicteric
Cardiovascular: Rhythm & rate is regular and Pedal edema is absent
Respiratory: Respiratory effort normal and Lungs clear to auscul.
GI: Soft and Distention absent
Neuro/Psych: AO x 3 and Motor deficits absent
Data Reviewed
-
Date of Service: January 07, 2024
[2024-01-07] MEDS: LOW STRENGTH ASPIRIN 81 MG PO (08:34)
[2024-01-07] MEDS: VITAMIN B-12 1000 MCG PO (08:39)
[2024-01-07] MEDS: ORETIC 25 MG PO (08:39)
[2024-01-07] MEDS: CRESTOR 40 MG PO (08:39)
[2024-01-07] MEDS: THERAGRAN 1 TABLET PO (08:39)
[2024-01-07] MEDS: PROSCAR 5 MG PO (08:39)
[2024-01-07] MEDS: ZESTRIL 20 MG PO (08:40)
[2024-01-07] MEDS: TOPROL XL 50 MG PO (08:40)
--- NOTE | 2024-01-07 10:26 | W.PN.HOSP.TC ---
Today's Communication/Plan
-
d/c
Assessment / Plan
Assessment / Plan
Gen: remains NAD, AAOx3.
Eyes: remains EOMI, PERRLA, no scleral icterus.
Neck: supple.
CV: RRR, +S1/S2, no m/r/g.
Resp: CTAB, no rales, wheezes, or rhonchi.
Abd: +BS, soft, NT, ND
Skin: No rashes.
Neuro: CN 2-12 intact, non-focal.
Psych: remains Normal mood and affect.
Echo: Normal biventricular size and systolic function without regional wall motion abnormality. Stage II diastolic dysfunction suggestive of abnormal relaxation and increased filling pressures. Moderate to severe mitral regurgitation, may be
underestimated due to acoustic shadowing. No prior study available for comparison.
Cardiac cath 01/05/24:
1. 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
2. Normal filling pressures (LVEDP = 12 mmHg at 96.2 kg).
3. Normal left ventricular systolic function with suboptimal left ventriculography. Left ventricular ejection fraction estimated at 70%.
4. There is severe mitral valve regurgitation on left ventriculography, though it is not clear how much of this is due to ectopy versus primary disease.
5. No obvious nidus for AIVR/slow VT.
Palpitations and lightheadedness due to AIVR:
-palpitations correlate with episodes of accelerated idioventricular rhythm. No apparent heart block. [place] sinus rate in the 50s to 60 while idioventricular rhythm runs in the 80s to 90s. No known history of ischemia.
-Reports recent stress in [place] with results pending
-case discussed with cardiology
-echo above
-Coreg stopped, Lopressor started
-cardiac cath above, no obstructive CAD, severe MR
-will need cardiac MRI prior to ablation.
-trops NEG
-case discussed today with Dr. Mitchell at length. He has cleared the patient for discharge on oral beta-janelle. The patient will receive a court monitor today at the cardiology office. This has already been arranged. Discussed with Kareen
SIVAKUMAR Abbott.
Other problems:
Prediabetes: a1c 6.1%
Essential HTN: cont BB/ACEi/HCTZ
BPH: cont dutasteride/tamsulosin
Obesity due to excess calories: Encourage weight loss, affects all aspects of care
FULL/Lovenox
Pt's family updated at bedside. RN updated. Discussed with cardiology as above.
Total time spent on d/c = 34 min. This included today's physical exam, progress note, review of laboratory and diagnostic data, preparation of discharge documents and prescriptions, and discussions about the pt's hospital course and discharge plan
with the patient and other clinical medical assistant involved in the patient's care.
Anticipated Discharge: Today
Subjective/Interval History
-
Date of Service: January 07, 2024
No new complaints.
Objective Data
-
Vital Signs:
Vital Signs
Temp Pulse Resp BP Pulse Ox
97.6 F 67 16 153/86 98
01/07/24 07:35 01/07/24 07:35 01/07/24 07:35 01/07/24 07:35 01/07/24 07:35
I&O
01/06/24 01/07/24 01/08/24
06:59 06:59 06:59
Intake Total 1200 / 1200 960 / 960
Balance 1200 / 1200 960 / 960
[2024-01-07 11:27] VITALS: BP 123/78
--- NOTE | 2024-01-07 13:09 | CM ---
[facility] met with Dameon and his family today to discuss d/c plans. He is (I) amb and adls. Feeling well and will be returning in 2 weeks for an ablation. At discharge he is going to see Cardiology for a hear monitor and will then return home with
family.
Dameon was interested in getting access to his [employer]. [employer] provided him with instruction card so he can set up his account.
Plan: D/C to home with family and no needs.
--- NOTE | 2024-01-07 14:00 | W.DCSUMMARY ---
Discharge Summary
Discharge Data
Date of Admission: 01/03/24
Date of Discharge: 01/07/24
-
Pending Results: Yes
Additional Pending Results:
Cardiac MRI read
Hospital Course
Primary Diagnoses:
Palpitations and lightheadedness due to accelerated idioventricular rhythm
Secondary Diagnoses:
Prediabetes
Essential hypertension
Benign prostatic hypertrophy
Obesity due to excess calories
Consultants:
Cardiology
Imaging:
Echo: Normal biventricular size and systolic function without regional wall motion abnormality. Stage II diastolic dysfunction suggestive of abnormal relaxation and increased filling pressures. Moderate to severe mitral regurgitation, may be
underestimated due to acoustic shadowing. No prior study available for comparison.
Cardiac cath 01/05/24:
1. 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
2. Normal filling pressures (LVEDP = 12 mmHg at 96.2 kg).
3. Normal left ventricular systolic function with suboptimal left ventriculography. Left ventricular ejection fraction estimated at 70%.
4. There is severe mitral valve regurgitation on left ventriculography, though it is not clear how much of this is due to ectopy versus primary disease.
5. No obvious nidus for AIVR/slow VT.
Hospital course: 73-year-old male who presented with a chief complaint of 'chest sensation with heart skipping a beat' as outlined in the H&P done on admission. The patient's palpitations were correlating with episodes of accelerated
idioventricular rhythm on telemetry. Patient was followed by cardiology. His Coreg was switched to Lopressor and then to Toprol-XL. Echocardiogram above and notable for normal BiV size and systolic function without regional wall motion
abnormality, G2DD, moderate to severe MR. He had a cardiac catheterization as above with no obstructive coronary disease and severe mitral regurgitation. Troponins were negative. Patient had a cardiac MRI the results of which are pending at this
time. On the day of discharge the case was discussed at length with Dr. Mitchell and he cleared the patient for discharge on oral beta-janelle. The patient will receive a conveyor monitor today at the cardiology office. This has already been
arranged. Discussed with Kareen Abbott NP. The patient was discharged in medically stable condition.
Discharge Plan
-
Patient Disposition: Home (Routine Discharge)
Discharge Diagnosis/Procedures: Accelerated idioventricular rhythm, cardiac catheterization
Diet: Low Cholesterol
Activity: No strenuous activity
Additional Activity: See attached intructions.
Driving Restrictions: No driving for 24 hours
Others Tests: Cardiac MRI. This needs to be completed prior to cardiology office visit.
Stand Alone Forms: DC Instructions- Cath/EP Lab
Referrals:
Angela Carson MD [Active] - 01/19/24 1:00 pm ( )
UNKNOWN - PT DOES,NOT KNOW [Family Provider] -
Prescriptions:
New
metoprolol succinate 50 mg Tablet Extended Release 24 Hr
50 mg PO BID Qty: 60 0RF
Continued
lisinopril 20 mg Tablet
20 mg PO BID
cyanocobalamin (vitamin B-12) 1,000 mcg Tablet
1,000 mcg PO DAILY
therapeutic multivitamin Tablet
1 tab PO DAILY
tamsulosin 0.4 mg Capsule
0.4 mg PO HS
aspirin 81 mg Tablet,Chewable
81 mg PO DAILY
hydrochlorothiazide 25 mg Tablet
25 mg PO DAILY
fluticasone propionate 50 mcg/actuation [place],Suspension
1 spray INTRANASAL DAILYPRN PRN (Reason: conjestion)
dutasteride 0.5 mg Capsule
0.5 mg PO DAILY
rosuvastatin 40 mg Tablet
40 mg PO DAILY
fexofenadine-pseudoephedrine [Michelle-D 24 Hour] 180-240 mg Tablet Extended Release 24 Hr
1 tab PO DAILYPRN PRN (Reason: allergies)
Discontinued
nitroglycerin 0.3 mg Tablet, Sublingual
0.3 mg SUBLINGUAL [id number] PRN (Reason: chest pain)
carvedilol phosphate 80 mg Capsule, Er Multiphase 24 Hr
80 mg PO DAILY
aspirin 81 mg Tablet
81 mg PO HS
Discharge Orders:
Discharge Patient (As Directed); Ordered 01/07/24
Ordered By: Mohsen Murguia
Discharge Date and Time
Discharge Date/Time: 01/07/24 12:45
Print Language: [email or web address]
== END 2024-01-07 12:45 | disposition home or self-care (01) | DRG 287 ==
LOC: 4 EAST ACU 22:11
PROVIDERS: Clinical Nurse Specialist Family Health; Emergency Medicine; Internal Medicine Cardiovascular Disease; Nurse Practitioner; ADMITTING PHYSICIAN Internal Medicine; ATTENDING PHYSICIAN Internal Medicine; EMERGENCY PHYSICIAN Emergency Medicine; OTHER PHYSICIAN Internal Medicine Cardiovascular Disease
PROC: B2151ZZ Fluoroscopy of Left Heart using Low Osmolar Contrast (ICD-10-PCS; 2024-01-05)
PROC: 4A023N7 Measurement of Cardiac Sampling and Pressure, Left Heart, Percutaneous Approach (ICD-10-PCS; 2024-01-05)
PROC: B2111ZZ Fluoroscopy of Multiple Coronary Arteries using Low Osmolar Contrast (ICD-10-PCS; 2024-01-05)
DX: I44.2 Atrioventricular block, complete (principal); Z79.82 Long term (current) use of aspirin; I10 Essential (primary) hypertension; E78.00 Pure hypercholesterolemia, unspecified; N40.0 Benign prostatic hyperplasia without lower urinary tract symptoms; E66.09 Other obesity due to excess calories; Z68.30 Body mass index [BMI] 30.0-30.9, adult; R73.03 Prediabetes
CPT/HCPCS: 71046; 75561; 80048; 80053; 80061; 83036; 83735; 84484; 85025; 85027; 93005; 93306; 93458; 97116; 97162; 99285; A9585; C1894; Q9967

== ENCOUNTER → 2024-01-12 11:00 | Outpatient (REF) | payer MEDICARE, OTHER, SELFPAY ==
[2024-01-12 11:40] LABS: % Basophils 0.3 % (0-2); % Eosinophils 2.4 % (0-6); % Immature Granulocytes 0.2 % (0-0.5); % Lymphocytes 29.1 % (20.5-51.1); % Monocytes 6.9 % (1.7-9.3); % Neutrophils 61.1 % (42.2-75.2); Absolute Eosinophils 0.1 10^3/uL (0-0.7); Absolute Lymphocytes 1.7 10^3/uL (1.2-3.4); Absolute Monocytes 0.4 10^3/uL (0.1-0.6); Absolute Neutrophils 3.5 10^3/uL (1.4-6.5); Hematocrit 45.5 % (39.0-52.0); Hemoglobin 15.1 g/dL (13.0-18.0); Mean Corp Hgb Conc. 33.2 g/dL (33.0-37.0); Mean Corpuscular Hgb 30.4 pg (27.0-31.0); Mean Corpuscular Volume 91.5 fL (80.0-94.0); Mean Platelet Volume 11.6 fL (7.4-10.4); Nucleated Red Blood Cells % 0 % (-); Platelet Count 195 10^3/uL (130-400); Red Blood Cell Count 4.97 10^6/uL (4.70-6.10); Red Cell Dist. Width 12.8 % (11.5-14.5); White Blood Cell Count 5.8 10^3/uL (4.8-10.8)
[2024-01-12 12:21] LABS: ALT (SGPT) 36 U/L (0-50); AST (SGOT) 31 U/L (17-59); Albumin 4.2 g/dl (3.5-5.0); Alkaline Phosphatase 77 U/L (38-126); Blood Urea Nitrogen 17 mg/dl (9-20); Calcium 9.5 mg/dl (8.4-10.2); Carbon Dioxide 34 mmol/L (22-30); Chloride 99 mmol/L (98-107); Glucose 83 mg/dl (70-99); Potassium 4.2 mmol/L (3.5-5.1); Sodium 141 mmol/L (135-145); Total Bilirubin 0.9 mg/dl (0.2-1.3); Total Protein 6.7 g/dl (6.3-8.2); eGFR > 60.00
== END ==
LOC: MD CBC 11:00
PROVIDERS: ATTENDING PHYSICIAN Internal Medicine Cardiovascular Disease
DX: Z01.810 Encounter for preprocedural cardiovascular examination (principal); I47.10 Supraventricular tachycardia, unspecified
CPT/HCPCS: 36415; 80053; 85025

== ENCOUNTER 2024-01-18 09:21 | Day surgery (SDC) | payer MEDICARE, OTHER, SELFPAY ==
[2024-01-12 11:12] VITALS: BMI 32.5
[2024-01-17] MEDS: AZACTAM 2000 MG IV (14:39)
[2024-01-18] VITALS (18 sets, daily range): BP systolic 117–162; BP diastolic 75–101
[2024-01-18] MEDS: VANCOCIN 300 MG IV (14:39)
[2024-01-18] MEDS: VANCOCIN 300 ML IV (14:39)
--- NOTE | 2024-01-18 14:47 | ITS.CL.ABL ---
Special Tester - Ablation
Ablation
Procedure Report:
PVC ablation:
Mr. Tellez is a 73 years old gentleman with PMH of non-sustained VT, slow frequent sustained AIVR, frequent PVCs and cardiac MRI showing patchy fibrosis with suspicion for Sarcoid cardiomyopathy presented today for VT/PVC ablation of his slow AIVR
and PVCs.
Date of the Procedure:
01/18/2024
Indications:
Slow symptomatic VT with Sarcoid cardiomyopathy
Pre-Operative Diagnosis:
Slow symptomatic VT with Sarcoid cardiomyopathy
Post-Operative Diagnosis:
Slow symptomatic VT with Sarcoid cardiomyopathy
Procedure Performed:
VT ablation � LV Anterolateral Papillary muscle
Performing Physician:
Angela Carson MD
Assistants:
EP staff
Anesthesia:
See anesthesia records
Detailed Description of the Procedure:
Written informed consent was obtained from the patient after a full explanation of the risks and benefits of the procedure including the risks of sedation and anesthesia. The patient was brought to the electrophysiology laboratory in stable
condition in fasting state. Continuous electrocardiographic and hemodynamic monitoring was initiated.
The initial rhythm was normal sinus rhythm with PVCs.
The procedure site was meticulously prepared with surgical scrub and allowed to dry with no pooling. Sterile draping was applied to cover the procedure site. The image intensifier was draped with sterile bag and positioned over the patient. After
infusion of local anesthetic, vascular access was obtained under ultrasound guidance and sheaths were placed over guide wire as detailed below.
Sheath and Catheter Placement:
In the right femoral vein, an 8 Fr sheath was placed under ultrasound guidance for ablation. In the right femoral vein, another 9-Finnish sheath was placed under ultrasound guidance for ICE.
The femoral sheath was upgraded as needed during the case. The following catheters / sheaths were placed
Sheaths:
��������������� 8Fr in right femoral vein � upgraded to VISIGO sheath
��������������� 9Fr sheath in right femoral vein
��������������� 6Fr sheath in right femoral vein
Catheters:
��������������� [employer] Thermocool STSF bidirectional - at locations of HRA, RV, LV
��������������� Sound-Star ICE catheter
��������������� Rajinder quad polar wire
Anticoagulation:
An initial 7000 units of heparin was given after the IV access. The additional 5000 units were given after the trans-septal puncture and heparin drip was started. The ACT was checked every 30 minutes to keep ACT above 300 throughout the case.
Intracardiac ECHO:
An 8-Finnish SoundStar intracardiac ECHO (ICE) probe was advanced through the 9-Finnish sheath in the femoral vein into the right atrium under fluoroscopic and ICE ultrasound image guidance and a baseline ECHO study was performed. The left atrial size
was normal. There was trace tricuspid regurgitation. The aortic valve was grossly normal. There was moderate to severe mitral regurgitation. There was normal left ventricular systolic function. There is no pericardial effusion. The LV cavity was
mapped and the contours were made using the ICE on 3D mapping. The Pap muscles were identified. The mitral valve annulus and the GRETEL were marked.
During the procedure, ICE was used for monitoring of complications, guidance of trans-septal puncture, monitor the catheter position and tracking ablation lesions. No change in the pericardial space noted throughout the procedure.
EP study was done with RV quad wire and multiple PVCs and non-sustained VT noted. The Isuprel started to get more frequent PVCs.
There were multiple PVCs noted a total of 11 different morphologies were recorded. The clinical and more prevalent PVC were marked and were noted to be coming from the LV pap muscle by EKG analysis.
Electroanatomic mapping (EAM) of the right atrium:
Using the [email or web address] STSF ablation catheter advanced through 8Fr sheath into the right atrium, an electroanatomic map (EAM) of the right atrium was created using Plink Search Carto mapping system. The map was used to identify the trans-septal
location. It showed normal right atrium.
Trans-septal Puncture:
A J-tipped guidewire was advanced through the 8-Finnish sheath in the right femoral vein into the superior vena cava under EAM and ICE guidance. The 8-Finnish sheath was exchanged for a VIZIGO sheath which was advanced into the superior vena cava. A
BRK needle was advanced until the tip was slightly behind the tip of the dilator inside the Visigo sheath. The apparatus was withdrawn until it was in contact with the fossa ovalis. The position was adjusted based on EAM and ultrasound images from
ICE. Under EAM, hemodynamic and ICE ultrasound guidance, left atrium was cannulated by advancing the needle. Once atrial septum was cannulated, the needle was pulled back and a saline injection was done into the left atrium. The saline bubbles were
noted on the ICE confirming the trans-septal puncture. Both the sheath and the dilator was advanced into the left atrium. The dilator with the needle was withdrawn. Blood was aspirated from the sheath and arterial blood confirmed. The sheath was
flushed. Saline injection noted into the left atrium on ICE. The pressure waveform was checked ad LA pressure measured. The ablation catheter was advanced in the sheath into the left pulmonary vein.
3D Electroanatomic Mapping of the LV:
Using the Thermocool STSF catheter was advanced through the VIZIGO sheath, an electroanatomic map (EAM) of the cardiac chambers was created using Plink Search Carto mapping system. The PVCs were mapped. Again there were extreme ectopy and
irritability noted with salvos of NSVT noted with a simple touch of catheter to the LV myocardium. The mapping was minal challenging as it needs adequate contact to the myocardium to get the electrograms but it resulted in ventricular ectopy. Pacemap
was also difficult due to the ectopy but was attempted. The pacing in between the ectopy was able to capture the ventricle and pacemap match was used to locate the PVC/VT origin. The PVC was noted to be coming from the anterolateral pap muscle.
Ablation # 1: LV Anterolateral pap muscle VT/PVC ablation:
The base of the Pap muscle was mapped thoroughly. Using the force sensing radiofrequency ablation catheter, Thermocool STSF, the earliest point of the map and the pacemap match was ablated. Multiple addition ablation lesions were placed to
consolidate the ablation.
Ablation #2: AIVR/VT ablation:
There was clinical VT/AIVR noted and was coming from the anterolateral pap and the earliest location was between pap and the lateral wall and further ablations were placed and the VT terminated and had no recurrence.
The VT/AIVR though was slow but was associated with hypotension that corrected with the ablation of the VT focus.
�
Patient was observed for 15 minutes and few of the non-clinical PVCs noted.
Some non-clinical PVCs continued occasionally.
EP study:
The EP study was done and the MUSTT protocol
Arrhythmia Induction:
Programmed stimulation including single, double and triple extrastimuli were delivered from the LV. There was easily inducible non-sustained ventricular tachycardia with single and double extrastimuli.
The VT was induced at 600/240/240/230 and it was fast and sustained. The tachycardia was sustained at cycle length of 260 msec.
Procedure End
ICE study was done again that showed no epicardial accumulation. No complications noted.
Following the completion of the EP study, catheters were removed. Protamine 50 mg was given at the end of the procedure and ACT was checked repeatedly. The sheaths were removed and hemostasis achieved with manual compression after acceptable ACT is
achieved.
LA and LV Pressure:
Mean LA pressure was 17mmHg
Large V wave noted. The mean pressure was 17 and the V wave was at 22mmHg.
Fluoro Time:
0.6 min
Estimated Blood loss:
<5 cc
Specimens Removed:
None.
Implants / Devices:
None
Urine output:
None
Packs / Drains/ Tubes:
None
Instrument / Sponge Count Correct:
Yes
Complications of the Procedure:
None
Condition of Patient at Time of Transfer:
Hemodynamically stable with no neurological or vascular compromise.
Summary:
PVC/VT ablation of the LV lateral wall at mitral annulus, PVC ablation of LV anterolateral pap muscle origin.
With Sarcoidosis and easily inducible VT, the dual chamber ICD is recommended.
--- NOTE | 2024-01-18 15:16 | ITS.CL.ICD ---
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
Implantable Cardioverter Defibrillator
Procedure Report:
Dual Chamber Implantable Cardioverter Defibrillator Placement:
Mr. Tellez is a 73-year-old male with frequent AIVR, non-sustained VT and high burden of PVC s/p EP study and ablation of the slow focus of AIVR was noted to have easily inducible VT and is recommended a dual chamber ICD placement. He is a left
handed person and will need right sided device.
He has baseline bradycardia and high suspicion for sarcoidosis and scattered fibrosis and with progressive disease is at risk for AV block and is recommended dual chamber device with atrial lead as well.
Indications: Sarcoidosis with ventricular tachycardia and bradycardia.
Date of the Procedure:
01/18/2024
Pre-Operative Diagnosis: Sarcoidosis with ventricular tachycardia and bradycardia.
Post-Operative Diagnosis: Sarcoidosis with ventricular tachycardia and bradycardia.
Procedure Performed: DUAL CHAMBER IMPLANTABLE CARDIOVERTER DEFIBRILLATOR IMPLANTATION
Surgeon:
Angela Carson MD
Anesthesia:
See anesthesia report
Detailed Description of the Procedure:
The patient was identified using hospital identification and informed consent obtained for the procedure. The risks were explained including, but not limited to: Bleeding, infection, arrhythmia, stroke, vascular/cardiac/lung puncture, surgery,
pacemaker dependency/device malfunction. All questions were answered.
The patient was brought to the electrophysiology laboratory in stable condition in fasting state. Continuous electrocardiographic and hemodynamic monitoring was initiated. The initial rhythm was sinus rhythm.
The procedure site was meticulously prepared with surgical scrub and allowed to dry with no pooling. Sterile draping was applied to cover the procedure site. The image intensifier was draped with sterile bag and positioned over the patient.
The right infra-clavicular region was prepped and draped in the usual sterile fashion. Local anesthesia was administered subcutaneously using 1% lidocaine / Bupivacaine. The right cephalic vein cut-down was performed with an incision at the
delto-pectoral groove, and vascular sheaths were introduced for lead access. These were advanced into the right ventricle and the right atrium.
The right ventricular lead was secured in position with an active fixation technique at the apical septal location.
The RA lead was attached in the right atrial appendage with active fixation.
There was excellent sensing, pacing, and impedance from the leads, with no diaphragmatic stimulation at 10 V output.�Bovie cautery, antibiotics, and fluoroscopy were used.
The sheath was withdrawn, and the thresholds remained acceptable. The lead was secured in position at the venous entry site with 2-0 Ethibond. A pocket was fashioned contiguous to the incision. The electrode terminals were connected to the pulse
generator, which was placed into the pocket. The wound was irrigated thoroughly with antibiotic solution and closed in 3 layers using 2-0 VLoc sutures followed by 2 layers of 4-0 V-loc sutures. Steri-Strips and a bandage were applied externally.�
Procedure End:
The procedure was tolerated well. A bandage was applied to the incision area.
Estimated Blood loss:
5 cc
Fluoro time:
8.2mmin / 30.5 mGy
Specimens Removed:
No cultures and no specimens were obtained. No intraoperative pathology was identified.
Urine output:
None
Packs / Drains/ Tubes:
None
Instrument / Sponge Count Correct:
Yes
Complications of the Procedure:
None
Condition of Patient at Time of Transfer:
Hemodynamically stable with no neurological or vascular compromise.
Device information:�
Generator: [employer]; Model: [id number]; Serial # [id number]�
Atrial Lead: [employer]; Model: 5076-45; Serial # [id number]�
Measured data in the right atrium was sensing of 1.8 mV, impedance of 456 ohms and threshold of 0.75 V at 0.4ms�
RV Lead: [employer]; Model: 6935M-55; Serial # [id number]
Measured data in the RV lead was sensing of 11.9 mV, impedance of 513 ohms and threshold of 0.75 V at 0.4ms�
PROGRAMMING PARAMETERS:�
Vinny parameter settings were AAI <=>DDD 50-90 bpm. �
����������� Mode switch: On
����������� Paced AV delay: 130 ms
����������� Sensed AV delay: 100 ms
����������� Rate Adaptive A-V Interval: Off
Output parameters:
����������������������� Amplitude (V)������������� Pulse Width (ms)������� Sensitivity (mV)
����������� RA: ����� 3.5 ����������������� ����������� 0.4������������������ ����������� 0.3
����������� RV:������ 3.5������������������ ����������� 0.4������������������ ����������� 0.3
Tachy parameter settings:
����������� SVT discrimination: On
����������� AF/AFl: On
����������� SVT limit: 260 msec
����������� VT zone:
����������������������� AIVR: 90-167 bpm -->Monitor
����������������������� VT: 167 - 188 bpm --> ATP then cardioversion
����������������������� Fast VT/VF: > 188 bpm --> Shock x6 (ATP before and during)
�����������
Summary:
Successful implantation of MRI compatible dual chamber Medtronic implantable Cardioverter Defibrillator.�
Results/Recommendations:
-Please follow up CXR�
1. Please provide patient with adequate pain control�
Instructions to be given to patient:�
- Please follow up with [facility] at [address] [place] [address] ([phone]) to get your wound checked within 14 days of your discharge.
- Do not soak incision site until after it is evaluated at cardiology clinic. OK to showers followed by dab dry the area. No baths or swimming until then. Sponge baths are OK.�
- Allow 'steri strips' to fall off on their own�
- Do not lift right elbow above shoulder, particularly with sudden jerking movements, for 1 month�
- Do not lift anything weighing more than 5 pounds with the right arm for 1 month�
- If you notice any fevers, shortness of breath, lightheadedness, chest pain, or worsening swelling in the wound site, please contact the arrhythmia clinic, contact your it security analyst, or present to the hospital for evaluation.�
Angela Carson MD
Electrophysiology
--- NOTE | 2024-01-18 17:56 | PTCARENOTE ---
Pt received post procedures at 1700. Pt alert and oriented. Right groin dressing WNL. Right chest ICD dressing dry and intact with immobilizer intact. Denies any pain at this time.
[2024-01-18] MEDS: TYLENOL 650 MG PO (20:20)
[2024-01-18] MEDS: ZESTRIL 20 MG PO (20:24)
[2024-01-18] MEDS: TOPROL XL 50 MG PO (20:26)
[2024-01-18] MEDS: ANESTHETIC LOZENGE 1 LOZENGE PO (22:18)
[2024-01-19 04:48] VITALS: BP 130/84
[2024-01-19 05:40] LABS: Blood Urea Nitrogen 16 mg/dl (9-20); Calcium 8.9 mg/dl (8.4-10.2); Carbon Dioxide 28 mmol/L (22-30); Chloride 102 mmol/L (98-107); Estimated Creatinine Clearance 91 ml/min; Glucose 122 mg/dl (70-99); Hematocrit 41.1 % (39.0-52.0); Hemoglobin 13.8 g/dL (13.0-18.0); Magnesium 1.9 mg/dl (1.6-2.3); Mean Corp Hgb Conc. 33.6 g/dL (33.0-37.0); Mean Corpuscular Hgb 29.4 pg (27.0-31.0); Mean Corpuscular Volume 87.6 fL (80.0-94.0); Mean Platelet Volume 12.1 fL (7.4-10.4); Platelet Count 184 10^3/uL (130-400); Potassium 4.1 mmol/L (3.5-5.1); Red Blood Cell Count 4.69 10^6/uL (4.70-6.10); Sodium 137 mmol/L (135-145); White Blood Cell Count 11.3 10^3/uL (4.8-10.8); eGFR > 60.00
[2024-01-19 07:34] VITALS: BP 131/81
[2024-01-19] MEDS: CRESTOR 40 MG PO (07:34)
[2024-01-19] MEDS: LOW STRENGTH ASPIRIN 81 MG PO (07:34)
[2024-01-19] MEDS: PROSCAR 5 MG PO (07:34)
[2024-01-19] MEDS: ZESTRIL 20 MG PO (07:34)
[2024-01-19] MEDS: ORETIC 25 MG PO (07:34)
[2024-01-19] MEDS: TOPROL XL 50 MG PO (07:35)
--- NOTE | 2024-01-19 07:35 | W.PN.CD ---
Today's Communication / Plan
-
-Stable for discharge
Impression / Plan
-
Mr. Tellez is a 73-year-old male with frequent AIVR, non-sustained VT and high burden of PVC s/p EP study and ablation of the slow focus of AIVR was noted to have easily inducible VT s/p dual chamber ICD placement 01/18/2024.
Dual-chamber ICD
-Medtronic on the right shoulder
-History of possible CVA/syncope likely related to VT.
-MRI of head and brain was ordered for workup, okay to proceed as the ICD is MRI conditional.
-Pressure dressing was removed. No bleeding, fluctuation or discharge noted.
-Chest x-ray is stable.
VT/AIVR/PVC
-Multiple PVC foci identified.
-AIVR focus was anterolateral pap muscle service post ablation. AIVR cycle length was 580 ms. Status post successful ablation on the anterolateral pap muscle.
-EP study was done that showed easily inducible ventricular tachycardia. Inducible VT tachycardia cycle length was 260 ms
-Multiple PVC foci were noted. Given scattered fibrosis and sarcoidosis, extensive ablation may be helpful and was not attempted.
-Continue antiarrhythmic with metoprolol 50 mg twice a day.
-S/p dual-chamber ICD for baseline bradycardia, need for beta-blockers and VT.
Essential hypertension
-Resistance previously. Currently on lisinopril 20 twice a day, metoprolol 50 twice a day, hydrochlorothiazide 25 once a day, tamsulosin 0.4 mg once a day
-Continue aspirin for now.
-Blood pressure is well-controlled at this time.
Physical Exam
Vital Signs/Labs
Vital Signs
Temp Pulse Resp BP Pulse Ox
98.7 F 68 18 130/84 96
01/19/24 04:48 01/19/24 04:48 01/19/24 04:48 01/19/24 04:48 01/19/24 04:48
01/19/24 04:54
01/19/24 04:54
Magnesium 1.9 mg/dl (1.6-2.3) 01/19/24 04:54
Physical Exam
Constitutional: No acute distress and Comfortable
EENT: Anicteric and Moist mucous membranes
Cardiovascular: Rhythm & rate is regular, Pedal edema is absent, JVD pressure is normal and Systolic murmur absent
Respiratory: Respiratory effort normal, Lungs clear to auscul., Wheeze Absent and Crackles Absent
GI: Soft, Non tender and Normal bowel sounds
Neuro/Psych: Alert, Oriented, AO x 3 and Motor deficits absent
Other: Cardiac Device Site
Data Reviewed
-
Date of Service: January 19, 2024
Medical Decision Making: Reviewed Test Results, Independent Historian Assessment, Test Interpretation and Review of Case with other Provider
EKG: Tracing Personally Visualized and interpreted
Echo: Report Reviewed by me
X-Ray/CT/US/MRI/NUC/PET: Image Personally Visualized and interpreted
Labs: Labs Reviewed by me
Old Records: Reviewed
[2024-01-19 09:01] LABS: ACT-LR - POC 300 Seconds (116-155)
[2024-01-19 09:01] LABS: ACT-LR - POC 263 Seconds (116-155)
[2024-01-19] MEDS: TYLENOL 650 MG PO (11:11)
--- NOTE | 2024-01-19 11:21 | CM ---
CM following for DC planning needs.
Pt. resides w/ spouse in a private, 2 story home. Functionally, patient is indep. w/ ADLs, mobility without use of any assisted device.
Antic. DC to home today without needs.
CM will remain avail. for any needs that may arise.
--- NOTE | 2024-01-19 11:43 | W.DS.TRANS ---
DC Summary - Engagement Specialist
-
Discharge Instructions:
Discharge Diagnosis/Procedures PVC/VT, s/p ablation and ICD implant
Diet Low Cholesterol
Driving Restrictions No driving for 1 week
Bathing Restrictions OK to Shower
Instructions:
Stand-Alone Forms: DC Instructions- Cath/EP Lab
DC Inst - Implanted Device
Changes to Home Medications: No
Discharge Medications:
DC Medications w/original date entered in [email or web address]
aspirin 81 mg chewable tablet 81 mg PO DAILY Blood Clot Prevention/Tx 01/03/24
cyanocobalamin (vitamin B-12) 1,000 mcg tablet 1,000 mcg PO DAILY Supplement 01/03/24
dutasteride 0.5 mg capsule 0.5 mg PO DAILY Urinary Issue 01/03/24
fexofenadine-pseudoephedrine ER 180 mg-240 mg tablet,ext.release 24 hr (Michelle-D 24 Hour) 1 tab PO DAILYPRN PRN allergies 01/03/24
fluticasone propionate 50 mcg/actuation nasal spray,suspension 1 spray intranasal DAILYPRN PRN conjestion 01/03/24
hydrochlorothiazide 25 mg tablet 25 mg PO DAILY Fluid Retention/Swelling 01/03/24
lisinopril 20 mg tablet 20 mg PO BID Blood Pressure 01/03/24
rosuvastatin 40 mg tablet 40 mg PO DAILY High Cholesterol 01/03/24
tamsulosin 0.4 mg capsule 0.4 mg PO HS Urinary Issue 01/03/24
therapeutic multivitamin 1 tab PO DAILY Supplement 01/03/24
metoprolol succinate 50 mg tablet,extended release 24 hr 50 mg PO BID #60 tabs 01/07/24
Home Medication Changes
Pending Results: No
[2024-01-19 11:45] VITALS: BP 141/90
--- NOTE | 2024-01-19 11:54 | PTCARENOTE ---
Pt received this am with no c/o of any pain or sob. OOB ad mi in the room and hallway. Right chest incision dressing dry and intact. Right groin site dressing dry and intact with no hematoma or ecchymosis. Remains in SR rate in the 60's to 80's. Pt
discharged to home with his and daughter. Discharge instructions given and reviewed with pt and family with good understanding.
== END 2024-01-19 11:54 | disposition home or self-care (01) ==
LOC: CATH 09:21
PROVIDERS: Nurse Practitioner Adult Health; ATTENDING PHYSICIAN Internal Medicine Cardiovascular Disease
DX: I47.20 Ventricular tachycardia, unspecified (principal); Z79.899 Other long term (current) drug therapy; Z79.82 Long term (current) use of aspirin; I49.3 Ventricular premature depolarization; D86.85 Sarcoid myocarditis; R00.1 Bradycardia, unspecified; I10 Essential (primary) hypertension; Z95.810 Presence of automatic (implantable) cardiac defibrillator; Z88.0 Allergy status to penicillin; Z98.890 Other specified postprocedural states
CPT/HCPCS: 33249; 93662; C1894; C1892; C1732; C1759; 71045; 80048; 83735; 85027; 85347; 86850; 86900; 86901; 90662; 93005; 93462; 93654; C1721; C1777; C1898; G0008